=== PATIENT | female | born 1970 | race American Indian/Alaskan Native ===

== ENCOUNTER 2016-10-09 18:01 | Emergency (ER) | payer OTHER ==
--- NOTE | 2016-10-09 20:02 | Emergency Department Report ---
Chief Complaint: Abdominal Pain Stated Complaint: CHEST PAIN/ABD PAIN/HEADACHE Time Seen by Provider: 10/09/16 19:58 - HPI History of Present Illness: 46 y/o female complain of chest and headache x 2 weeks.pt complain of abdominal pain x 3 days .pt complain of n/v/d .pt denies any prior medical treatment - ROS Review of Systems: per HPI - Exam Vital Signs: Vital Signs 10/09/16 18:50 Temperature 98.7 F Pulse Rate 78 Respiratory 20 Rate Blood Pressure 159/94 O2 Sat by Pulse 100 Oximetry Physical Exam: GENERAL: The patient is well-developed and well-nourished. Patient is in NAD. HENT: Normocephalic. Atraumatic. Patient has moist mucous membranes. Throat: No erythema, swelling or exudates. EYES: Extraocular motions are intact, PERRL NECK: Supple. No meningitic signs are noted. There is no adenopathy noted. CHEST/LUNGS: Clear to auscultation bilaterally. No wheezing, rales or rhonchi noted. There is no respiratory distress noted. HEART/CARDIOVASCULAR: Regular rate and rhythm. Normal S1 S2. No murmurs, rubs , clicks, or gallops. ABDOMEN: Abdomen is soft, nontender.. Bowel sounds normoactive. There is no abdominal distention. Negative rebound tenderness. : Deferred. SKIN: There is no rash. There is no edema. There is no diaphoresis. NEURO: The patient is A&Ox3. The patient has no focal neurologic deficits. MUSCULOSKELETAL: There is no tenderness or deformity. There is no limitation range of motion. PSYCH: Pt has appropriate mood and affect. MSE screening note: Focused history and physical exam performed. Due to findings the following was ordered: ED Disposition for MSE Condition: Stable Instructions: Abdominal Pain (ED)
[2016-10-09 20:38] LABS: Eosinophils % (Auto) 2.2 % (0.0-4.3); Hemoglobin 9.3 gm/dl (10.1-14.3); Mean Corpuscular HGB Conc 32 % (30-34); Platelet Count 430 K/mm3 (140-440); Red Blood Count 4.22 M/mm3 (3.65-5.03); Red Cell Distribution Width 18.9 % (13.2-15.2); White Blood Count 4.7 K/mm3 (4.5-11.0)
[2016-10-09 20:39] LABS: Mean Corpuscular Hemoglobin 22 pg (28-32); Mean Corpuscular Volume 69 fl (79-97)
[2016-10-09 20:48] LABS: INR 0.98 (0.87-1.13)
[2016-10-09 20:53] LABS: Amylase 102 units/L (27-131); Anion Gap 17 mmol/L; BUN/Creatinine Ratio 8.57; Blood Urea Nitrogen 6 mg/dL (7-17); Calcium 8.9 mg/dL (8.4-10.2); Carbon Dioxide 25 mmol/L (22-30); Chloride 100.6 mmol/L (98-107); Glucose 93 mg/dL (65-100); Lipase 19 units/L (13-60); Potassium 3.8 mmol/L (3.6-5.0); Sodium 139 mmol/L (137-145)
[2016-10-09 20:59] LABS: Creatine Kinase 69 units/L (30-135)
[2016-10-09 21:00] LABS: Creatine Kinase MB < 1.0 ng/mL (0.0-4.0)
[2016-10-09 23:29] LABS: Bilirubin,Urine NEG (Negative); Blood,Urine NEG (Negative); Ketones,Urine NEG (Negative); Leukocyte Esterase,Urine NEG (Negative); Mucus,Urine 3+ /HPF; Nitrite,Urine NEG (Negative); Protein,Urine <15 mg/dL mg/dL (Negative); Urobilinogen,Urine < 2.0 mg/dL (<2.0)
[2016-10-10] MEDS ORDERED: MORPHINE IV ONE (08:42)
[2016-10-10] MEDS ORDERED: ZOFRAN IV ONE (08:42)
[2016-10-10] MEDS ORDERED: NACL ONE (08:53)
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
--- NOTE | 2016-10-10 09:40 | Cat Scan Report ---
CT HEAD WITHOUT CONTRAST INDICATION: Left-sided headache. COMPARISON: None similar. FINDINGS: Noncontrast head CT, with few images repeated for motion, demonstrates normal ventricles and sulci without acute or recent infarct, hemorrhage, mass effect or midline shift. No abnormal extra-axial fluid collections. Posterior fossa structures and basilar cisterns appear within normal limits. Symmetric eye globes. Clear paranasal sinuses and mastoid air cells. Intact calvarium. Normal overlying scalp soft tissues. Partly edentulous jaw with few anterior mandibular teeth remaining. CONCLUSION: No acute intracranial CT abnormality, as described. Thank you for the opportunity to participate in this patient's care.
--- NOTE | 2016-10-10 10:04 | Cat Scan Report ---
CT ABDOMEN AND PELVIS WITH CONTRAST INDICATION: Epigastric abdominal pain and swelling. COMPARISON: None similar. FINDINGS: Abdomen and pelvis CT performed following intravenous administration of 100 cc of Omnipaque 300. LUNG BASES: Top normal heart size. No effusions. Slight left basilar scarring and minimal right middle lobe nonspecific nodular scarring/infiltrate inferiorly as on axial image 7, series 2, amongst others. Nonspecific distal esophageal wall thickening, not excluded for gastroesophageal reflux and/or hiatal hernia, amongst others. ABDOMEN: At least 2 supraumbilical midline ventral fat-containing hernias noted, the larger approximately 8.5 cm above the umbilicus and demonstrates a 3 cm transverse neck, axial image 63, series 3 with approximately 8 x 3 x 6 cm herniated subcutaneous fat. A smaller hernia more inferiorly located approximately 3 cm above the umbilicus and demonstrates a transverse neck of 1.5 cm on axial image 87, series 3. Small fat-containing umbilical hernia with a transverse neck of approximately 1 cm as well. Approximately 5 mm indeterminate peripheral right hepatic hypodensity. Otherwise unremarkable liver, spleen, gallbladder, pancreas, adrenals, non-aneurysmal abdominal aorta, IVC and slightly lobulated nonhydronephrotic bilateral kidneys. No ascites or size significant adenopathy. Nonopacified GI tract evaluation limited, though grossly nonobstructive. Normal appendix. Mild to moderate colonic stool/possible constipation. PELVIS: Myomatous uterus approximately 11 cm in length with a dominant/largest fibroid on the left approximately 5.3 cm on axial image 157, series 3, partly effacing the urinary bladder. Unremarkable rectosigmoid. Unremarkable bones. CONCLUSION: 1. Umbilical and supraumbilical fat containing hernias, as detailed above. 2. Various other incidental findings, including distal esophageal thickening, possible constipation and a myomatous uterus, amongst others, as described. Thank you for the opportunity to participate in this patient's care.
--- NOTE | 2016-10-10 10:58 | Admit Criteria Form ---
Admission Criteria Documentation: ABDOMINAL PAIN Clinical Indications for Admission to Inpatient Care (Place 'X' for any and all applicable criteria): Admission is indicated for ANY ONE of the following(1)(2)(3)(4)(5): [X ]I. Inpatient admission required rather than observation care (Also use Abdominal Pain: Observation Care, as appropriate) because of ANY ONE of the following: [X ]a) Severe pain requiring acute inpatient management [ ]b) Identification of etiology/finding that requires inpatient care (eg, aortic dissection, free air) [ ]c) Absent bowel sounds with complete ileus(6) [ ]d) Suspected toxic megacolon [ ]e) Severe electrolyte abnormalities requiring inpatient care [ ]f) High fever or infection requiring inpatient admission as indicated by ANY ONE of following(7)(8): [ ] i) Appropriate outpatient or observational care antimicrobial treatment unavailable, not effective, or not feasible [ ] ii) Documented bacteremia [ ] iii) Temperature > 104.9 degrees F (oral) [ ] iv) T >103.1 F (oral) or < 96.8 F(rectal) that does not respond to all emergency treatment measures [ ]g) Signs of intestinal obstruction [B] [ ]h) Hemodynamic instability [ ]i) IV fluid to replace significant ongoing losses (greater than 3 L/m2 per day) (12)(13) [ ]j) Percutaneous or open drainage (eg, abscess, biliary tract ) procedures [ ]k) Parenteral nutrition regimen that must be implemented on inpatient basis [X ]l) Other condition,treatment or monitoring requiring inpatient admission. [ ]II. Peritoneal signs present [ ]III. Surgery needed that cannot be performed on an ambulatory basis. [ ]IV. Evaluation requires patient to not eat or drink for extended period ( eg, more than 24 hours). [ ]V. Contraindications and/or Inappropriate clinical situations for Observational Care in patients with abdominal pain, when ANY ONE of the following is required: [ ]a) Thorough evaluation is required to prevent catastrophic events due to delays in diagnosing (e.g.Mesenteric ischemia) 1,3 [ ]b) Patient with severe pathology or with chronic symptoms unlikely to improve in the ED stay (3) [ ]. General contraindications and/or Inappropriate clinical situations for Observational Care in patients with abdominal pain, when ANY ONE of the following is required: [ ]a) Prediction of prolongation of LOS based on ANY ONE of the following may be considered as a contraindication for observational care 2, 3, 4, 5, 6, 7, 8, 9, 10, 11 [ ]i) Age > 65 yrs. [ ]ii) Patient arriving by ambulance [ ]iii) Patient with high acuity [ ]iv) Patient requiring vital sign monitoring [ ]v) Patient on IV medication [ ]b) Systolic blood pressures 180mmHg 3,12 [ ]c) Patient with altered mental status including delirium and other alteration of consciousness, (3) [ ]d) Patient whose discharge disposition will be to a [facility] home or rehabilitation home should not be managed in Emergency Department Observation Unit. CMS rule requires 3 days hospital stay before such placement.3,13 [ ]e) Patient with failure to thrive due to broad array of etiologies 3,16,17 [ ]f) Inability to ambulate 3,14 Extended stay beyond goal length of stay may be needed for(2)(3): [ ]a) Persistent abdominal pain with suspected intra-abdominal process [ ]b) Diagnosed condition requiring continued stay (e.g., pancreatitis, complicated diverticulitis) [ ]c) Surgery (e.g., colectomy) The original [email or web address] content created by [employer] has been revised. The portions of the content which have been revised are identified through the use of italic text or in bold, and [facility] has neither reviewed nor approved the modified material.All other unmodified content is copyright [employer]. Please see references footnoted in the original [email or web address] edition 2016 Admission Criteria Met: Pending
[2016-10-10 11:29] VITALS: BP 147/57
== END 2016-10-10 11:27 | disposition home or self-care (01) ==
LOC: ED 18:01
DX: K46.9 Unspecified abdominal hernia without obstruction or gangrene (principal); R51 Headache; R10.13 Epigastric pain; I10 Essential (primary) hypertension; E11.9 Type 2 diabetes mellitus without complications; Z79.82 Long term (current) use of aspirin
CPT/HCPCS: 36415; 70450; 74177; 80048; 81001; 82150; 82550; 82553; 83690; 84484; 84702; 85025; 85610; 93005; 93010; 96374; 96375; 99284; J2270; J2405; Q9967